=== PATIENT | female | born 1990 | race Caucasian/White ===

== ENCOUNTER 2024-08-12 08:23 | Outpatient (CLI) | payer BC ==
[2024-08-13 11:15] LABS: PROGESTERONE 37.8 ng/mL (.)
== END 2024-08-12 23:59 | disposition home or self-care (01) ==
LOC: LAB 08:23
PROVIDERS: ATTEND Obstetrics & Gynecology Reproductive Endocrinology
DX: Z31.41 Encounter for fertility testing (principal); Z31.89 Encounter for other procreative management
CPT/HCPCS: 36415; 82670; 84144; 84702

== ENCOUNTER 2024-08-15 08:56 | Outpatient (CLI) | payer BC ==
[2024-08-15 10:09] LABS: THYROID STIMULATING HORMONE 2.42 ulU/ml (0.34-4.50)
== END 2024-08-15 23:59 | disposition home or self-care (01) ==
LOC: RAD 08:56
PROVIDERS: ATTEND Obstetrics & Gynecology Reproductive Endocrinology
DX: O36.0110 Maternal care for anti-D [Rh] antibodies, first trimester, not applicable or unspecified (principal); Z31.89 Encounter for other procreative management; O09.01 Supervision of pregnancy with history of infertility, first trimester; Z3A.00 Weeks of gestation of pregnancy not specified
CPT/HCPCS: 36415; 84144; 84443; 84702; 86885; 86900; 86901

== ENCOUNTER 2024-10-07 10:18 | Outpatient (CLI) | payer SELFPAY ==
[2024-10-07 11:47] LABS: BASOPHILS # (AUTO) 0.1 X10'3 (0-0.2); BASOPHILS % (AUTO) 0.6 % (0-1); EOSINOPHILS # (AUTO) 0.1 X10'3 (0-0.9); EOSINOPHILS % (AUTO) 0.6 % (0-6); HEMATOCRIT 43.6 % (35.0-45.0); HEMOGLOBIN 14.9 g/dl (12.0-16.0); LYMPHOCYTES # (AUTO) 2.5 X10'3 (1.1-4.8); LYMPHOCYTES % (AUTO) 21.2 % (21-51); MEAN CORPUSCULAR HEMOGLOBIN 31.4 PG (27.0-31.0); MEAN CORPUSCULAR HGB CONC 34.3 g/dL (33.0-36.5); MEAN CORPUSCULAR VOLUME 91.5 FL (78-98); MEAN PLATELET VOLUME 7.7 FL (7.4-10.4); MONOCYTES # (AUTO) 0.5 X10'3 (0-0.9); MONOCYTES % (AUTO) 4.6 % (2-12); NEUTROPHILS # (AUTO) 8.5 X10'3 (1.8-7.7); PLATELET COUNT 284 X10'3 (140-440); RED BLOOD COUNT 4.76 X10'6 (4.20-5.60); WHITE BLOOD COUNT 11.6 X10'3 (4.5-11.0)
[2024-10-07 11:48] LABS: BILIRUBIN,URINE NEGATIVE (Neg); CLARITY,URINE CLEAR (Clear); COLOR,URINE STRAW (Yellow); GLUCOSE, URINE NEGATIVE (Neg); KETONES,URINE NEGATIVE (Neg); LEUKOCYTE ESTERASE ,URINE TRACE (Neg); NITRITES, URINE NEGATIVE (Neg); OCCULT BLOOD,URINE NEGATIVE (Neg); PROTEIN,URINE NEGATIVE (Neg); UROBILINOGEN,URINE 0.2 E.U/dL (0.2-1.0)
[2024-10-07 11:52] LABS: UA COLLECTION TYPE NON-SPECIFIED
[2024-10-07 11:56] LABS: BACTERIA,URINE NONE SEEN /HPF (Neg); MUCUS STRANDS FEW /LPF (Neg); RBC,URINE 0-2 /HPF (0-2); SQUAMOUS EPITHELIAL CELL,UR MODERATE /LPF (FEW); WBC,URINE 0-4 /HPF (0-4)
[2024-10-07 12:03] LABS: HEMOGLOBIN A1C 5.1 % (4.5-6.2)
[2024-10-07 12:11] LABS: HIV ANTIBODY 1&2 RAPID NON-REACTIVE (Neg)
[2024-10-07 12:31] LABS: FREE T4 (FREE THYROXINE) 0.78 NG/DL (0.73-1.40); THYROID STIMULATING HORMONE 1.19 ulU/ml (0.34-4.50)
[2024-10-11 05:13] LABS: HBSAG SCREEN Negative (Negative); HEPATITIS C VIRUS ANTIBODY Non Reactive (Non Reactive); RUBELLA ANTIBODIES, IGG 7.02 index (Immune >0.99); VARICELLA-ZOSTER VIRUS AB, IGG Reactive (Non Reactive)
== END 2024-10-07 23:59 | disposition home or self-care (01) ==
LOC: LAB 10:18
PROVIDERS: ATTEND Nurse Practitioner Family
DX: Z34.82 Encounter for supervision of other normal pregnancy, second trimester (principal); Z34.92 Encounter for supervision of normal pregnancy, unspecified, second trimester; Z36.0 Encounter for antenatal screening for chromosomal anomalies; Z3A.00 Weeks of gestation of pregnancy not specified
CPT/HCPCS: 36415; 81001; 83036; 84439; 84443; 85025; 86592; 86703; 86762; 86803; 86885; 86900; 86901; 87088; 87340; 87389; 87522

== ENCOUNTER 2024-12-06 11:51 | Outpatient (CLI) | payer BC | END 2024-12-06 23:59 | disposition home or self-care (01) | LOC: LAB 11:51 | PROVIDERS: ATTEND Nurse Practitioner Family | DX: T78.40XD Allergy, unspecified, subsequent encounter (principal); L28.2 Other prurigo; X58.XXXD Exposure to other specified factors, subsequent encounter | CPT/HCPCS: 36415 ==